=== PATIENT | female | born 2000 | race Caucasian/White ===

== ENCOUNTER → 2025-08-17 | Outpatient (CLI) | payer OTHER ==
[2025-08-17 11:49] LABS: PLATELET COUNT, AUTOMATED 200 10^3/uL (150-450)
[2025-08-17 12:14] LABS: ALT/SGPT 23 U/L (7.0-40); AST/SGOT 23 U/L (<34); CALCIUM LEVEL 9.0 MG/DL (8.5-10.1); CARBON DIOXIDE LEVEL 28 MMOL/L (20-31); CHLORIDE LEVEL 104 MMOL/L (98-107); CHOLESTEROL LEVEL 120 MG/DL (<200); CHOLESTEROL RISK RATIO 2.70 (<5); CREATININE FOR GFR 0.58 MG/DL (0.55-1.30); GLOMERULAR FILTRATION RATE > 90.0 (>60); LDL CHOLESTEROL 68.3 MG/DL (<100); NON-HDL-C 75.7 MG/DL; POTASSIUM SERUM 3.8 MMOL/L (3.5-5.1); SODIUM LEVEL 139 MMOL/L (136-145); TRIGLYCERIDES LEVEL 37 MG/DL (<150)
[2025-08-17 12:17] LABS: FREE T4 1.07 NG/DL (0.89-1.76); TOTAL 25(OH) VITAMIN D 34.2 NG/ML (20.0-100.0)
[2025-08-17 12:48] LABS: HIV 1&2 SCREEN NEGATIVE (NEGATIVE)
[2025-08-17 12:55] LABS: HEPATITIS C VIRUS ABY INDEX 0.05 INDEX (<0.8)
[2025-08-17 13:08] LABS: VITAMIN B12 LEVEL 564 PG/ML (211-911)
== END ==
LOC: M LAB 10:09
PROVIDERS: ATTEND Nurse Practitioner Family
DX: F11.21 Opioid dependence, in remission (principal); F41.1 Generalized anxiety disorder